=== PATIENT | male | born 1940 | race Caucasian/White ===

== ENCOUNTER → 2021-04-02 | Outpatient (CLI) | payer MEDICARE ==
[~2021-04-02] MED LIST: AEC81 PO; AMLO-257 PO; AMLO-258 PO; CEPH500B PO; LABE200T5 PO; PHEN-847 PO; ROSU20TA23 PO; ROSU20TA31 PO; TRAM50TA4 PO
== END | disposition home or self-care (01) ==
LOC: RAH 13:27
PROVIDERS: ATTEND Urology
DX: N20.0 Calculus of kidney (principal); N26.1 Atrophy of kidney (terminal); R55 Syncope and collapse
CPT/HCPCS: 74176

== ENCOUNTER → 2022-10-01 | Outpatient (CLI) | payer MEDICARE ==
[~2022-10-01] MED LIST changes: -LABE200T5 PO; +LABE200T7 PO
== END | disposition home or self-care (01) ==
LOC: SHCH 09:42
PROVIDERS: ATTEND Internal Medicine Cardiovascular Disease
DX: G45.1 Carotid artery syndrome (hemispheric) (principal)
CPT/HCPCS: 93880

== ENCOUNTER → 2023-10-31 | Outpatient (CLI) | payer MEDICARE ==
[~2023-10-31] MED LIST changes: -ROSU20TA31 PO; +ROSU20TA73 PO
[2023-10-31 12:33] LABS: CREATININE 1.2 mg/dL (0.5-1.5); POTASSIUM 5.1 mmol/L (3.5-5.1)
== END | disposition home or self-care (01) ==
LOC: LAB 10-30 10:10
PROVIDERS: ATTEND Internal Medicine Cardiovascular Disease
DX: I10 Essential (primary) hypertension (principal); E78.5 Hyperlipidemia, unspecified
CPT/HCPCS: 36415; 80048; 80061

== ENCOUNTER → 2023-12-18 | Outpatient (CLI) | payer MEDICARE | END | disposition home or self-care (01) | LOC: SHCH 14:17 | PROVIDERS: ATTEND Internal Medicine Cardiovascular Disease | DX: G45.1 Carotid artery syndrome (hemispheric) (principal) | CPT/HCPCS: 93880 ==

== ENCOUNTER → 2024-11-06 | Outpatient (CLI) | payer MEDICARE ==
[~2024-11-06] MED LIST changes: -ROSU20TA73 PO; +ROSU20TA98 PO
== END | disposition home or self-care (01) ==
LOC: SHCH 11:24
PROVIDERS: ATTEND Internal Medicine Cardiovascular Disease
DX: Z45.02 Encounter for adjustment and management of automatic implantable cardiac defibrillator (principal)
CPT/HCPCS: 93306

== ENCOUNTER 2024-12-15 05:50 | Day surgery (SDC) | payer MEDICARE ==
[2024-12-13 09:40] LABS: BASOPHILS # (AUTO) 0.07 K/uL (0.00-0.20); BASOPHILS % (AUTO) 1.4 % (0.0-5.0); LYMPHOCYTES # (AUTO) 1.2 K/uL (1.0-4.8); LYMPHOCYTES % (AUTO) 24.3 % (21.0-51.0); MEAN CORPUSCULAR HEMOGLOBIN 31.3 pg (27.0-33.0); MEAN CORPUSCULAR HGB CONC 32.4 g/dL (32.0-36.0); MEAN CORPUSCULAR VOLUME 96.4 fL (79-99); MONOCYTES # (AUTO) 0.4 K/uL (0.1-1.0); MONOCYTES % (AUTO) 8.3 % (3.0-13.0); NEUTROPHILS # (AUTO) 3.4 K/uL (1.8-7.7); PLATELET COUNT (AUTO) 124 K/uL (130-400); RED BLOOD CELL COUNT(AUTO) 4.67 MIL/uL (4.50-6.20); RED CELL DISTRIBUTION WIDTH 14.1 % (11.0-15.5); WHITE BLOOD COUNT (AUTO) 5.1 K/uL (4.8-10.8)
[2024-12-13 09:44] VITALS: BP 145/76; PULSE 71; RESP 15; TEMP 97.5
[2024-12-13 09:47] LABS: CREATININE 1.3 mg/dL (0.5-1.3); POTASSIUM 5.3 mmol/L (3.5-5.1)
[2024-12-13 09:54] LABS: INR 1.07 (0.85-1.15); PROTHROMBIN TIME 11.3 SEC (9.6-11.6)
[2024-12-13 09:55] LABS: PARTIAL THROMBOPLASTIN TIME 29.6 SEC (26.3-35.5)
--- NOTE | 2024-12-13 10:06 | EKG ---
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
[~2024-12-15] VITALS: Ht 180.3 cm; Wt 93.4 kg
[~2024-12-15 05:50] MED LIST changes: -AEC81 PO; -CEPH500B PO
[2024-12-15 06:15] VITALS: BP 139/96; PULSE 77; RESP 18; TEMP 97.2
[2024-12-15] MEDS ORDERED: TAMS-1 PO (07:00)
[2024-12-15] MEDS ORDERED: METO-391 PO (07:00)
[2024-12-15] MEDS ORDERED: POTA15TA11 PO (07:00)
[2024-12-15] MEDS ORDERED: LIDOCAINE HCL 1% MDV 50ML VIAL ONE (07:24)
[2024-12-15] MEDS ORDERED: BUPIvacaine/PF 0.25% 30ML VIAL IJ ONE (07:24)
[2024-12-15] MEDS ORDERED: ceFAZolin SODIUM 1 GM VIAL ONE (07:24)
[2024-12-15] MEDS ORDERED: FENTanyl CITRate PF 50 MCG/1 ML 2ML VIAL ONE (07:39)
[2024-12-15] MEDS ORDERED: MIDAZOLAM HCL 1 MG/ML 2ML VIAL ONE ×2 (07:40→07:48)
[2024-12-15] MEDS ORDERED: DiphenhydrAMINE HCL 50 MG/ML VIAL ONE (07:57)
[2024-12-15] MEDS ORDERED: SODIUM BICARB 50MEQ 50ML VIAL 50 ML ONE (08:01)
[2024-12-15] MEDS ORDERED: BACITRACIN 1 EACH PACKET TP ONE (08:20)
[2024-12-15] MEDS ORDERED: TRAM50TA4 PO (08:38)
[2024-12-15] MEDS ORDERED: acetaMINOPHEN WITH coDEINE 1 TAB TAB PO PRN ×2 (09:00)
[2024-12-15] MEDS ORDERED: acetaMINOPHEN 500 MG TABLET PO PRN (09:00)
[2024-12-15 09:10] VITALS: BP 151/63; PULSE 60; RESP 14; TEMP 97.4
--- NOTE | 2024-12-15 09:10 | NUR ---
PT ARRIVED TO DAY #14 LEFT SIDE CHEST NOTED SCANT AMOUNT OF BLOOD TO DRESSING. SKIN AROUND PACEMAKER SITE ASYMPTOMATIC. VSS NAD.
[2024-12-15 09:25] VITALS: BP 134/88; PULSE 60; RESP 14
[2024-12-15 09:40] VITALS: BP 138/82; PULSE 60; RESP 15
[2024-12-15 09:55] VITALS: BP 142/67; PULSE 60; RESP 13
[2024-12-15 10:10] VITALS: BP 149/73; PULSE 60; RESP 14
--- NOTE | 2024-12-15 10:10 | NUR ---
BOTH PT AND GIVEN VERBAL AND WRITTEN DISCHARGE INSTRUCTIONS. INSTRUCTIONS GIVEN FOR DRESSING CHANGES WELL. LEFT CHEST ASYMPTOMATIC DRESSING NOTED WITH SCANT AMOUNT OF BLOOD WHEN PT ARRIVED TO DAY #14.
== END 2024-12-15 10:25 | disposition home or self-care (01) ==
LOC: DAH 05:50
PROVIDERS: ATTEND Internal Medicine Cardiovascular Disease
DX: Z45.010 Encounter for checking and testing of cardiac pacemaker pulse generator [battery] (principal); I44.2 Atrioventricular block, complete; I25.10 Atherosclerotic heart disease of native coronary artery without angina pectoris; I12.9 Hypertensive chronic kidney disease with stage 1 through stage 4 chronic kidney disease, or unspecified chronic kidney disease; N18.31 Chronic kidney disease, stage 3a; E78.5 Hyperlipidemia, unspecified; I77.9 Disorder of arteries and arterioles, unspecified; F10.90 Alcohol use, unspecified, uncomplicated; Z79.899 Other long term (current) drug therapy; Z79.82 Long term (current) use of aspirin; Z98.890 Other specified postprocedural states; Z95.5 Presence of coronary angioplasty implant and graft; Z79.01 Long term (current) use of anticoagulants
CPT/HCPCS: 80048; 85025; 85610; 85730; 36415; 93005; 33228; A4223 ×3; C1785; J3010; J0690; J0665; J3490 ×2; J2250 ×2; A4215; A6251; A4222; A4221; A4663; A4216; A6258; A4606; 99156; 99157; J1200

== ENCOUNTER → 2025-04-07 | Outpatient (CLI) | payer MEDICARE ==
[~2025-04-07] MED LIST changes: -AMLO-257 PO; -AMLO-258 PO; -LABE200T7 PO; +METO-391 PO; -PHEN-847 PO; +POTA15TA11 PO; -ROSU20TA23 PO; +TAMS-55 PO
--- NOTE | 2025-04-07 14:42 | HMCIMG ---
EXAM: CR Cervical spine, 4 View. CLINICAL HISTORY: CERVIACALGIA COMPARISON: None provided. FINDINGS: Moderate to marked facet arthrosis bilaterally. C7 vertebral body and C7-T1 alignment is not adequately seen on the lateral view due to underpenetration. Large anterior endplate marginal spurring/anterior longitudinal ligament calcification C4 and C6. No prevertebral soft tissue swelling. Surgical clips right anterior lateral neck mild loss of the C4-C5 disc space. Marked loss of the C6-C7 disc space. The included apical lungs are clear. There are 2 cardiac leads partially visible. The C1-C2 relationship is intact. The tip of the dens is not well seen IMPRESSION: 1. No acute osseous injury. 2. 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 3. Limited evaluation of C7-T1 due to technical factors. If there is a history of trauma recommend CT C-spine for further evaluation /[place]
== END | disposition home or self-care (01) ==
LOC: RAH 13:39
PROVIDERS: ATTEND Nurse Practitioner Adult Health
DX: M47.812 Spondylosis without myelopathy or radiculopathy, cervical region (principal); M54.2 Cervicalgia; G89.11 Acute pain due to trauma
CPT/HCPCS: 72040

== ENCOUNTER → 2025-05-26 | Outpatient (CLI) | payer MEDICARE ==
[~2025-05-26] MED LIST changes: +REGADENOSON 0.4 MG/5 ML PF SYG IVP ONE
[2025-05-26] MEDS: REGADENOSON 0.4 MG/5 ML PF SYG IVP ONE (14:38)
--- NOTE | 2025-05-27 08:45 | HMCSR ---
APPROVED REPORT Height: 5 ft 11in Weight: 203 lbs TEST INDICATIONS CAD The imaging protocol used to acquire images was Rest Tc-99m/stress Tc-99m 1 day Consent: The procedure was explained and understood by the patient. Informerd consent was witnessed Arthur Hayes RN First, low dose rest was performed then high dose stress. RESTING DATA: The resting ekg shows: NSR Rest SPECT myocardial perfusion imaging was performed in supine position minutes following the intra venous injection of 11 mCi of Tc-99 Sestamibi. Time of rest injection: 11:13: Date: 05/26/2025 PHARMACOLOGIC STRESS: Pharmacologic stress test was performed by injecting regadenoson 0.4 mg IV push followed by the intra venous injection of 31 mCi of Tc-99 Sestamibi. Time of stress injection: 12:52: Date: 05/26/2025 Heart Rate at time of stress injection: 83 bpm. Gated Stress SPECT was performed 60 minutes after stress injection. The images were gated to evaluate regional wall motion and calculate left ventricular ejection fracti on. STRESS DETAILS Reason for Termination: Infusion complete Stress Symptoms: Dyspnea Max HR Achieved: 91 bpm % of APMHR Achieved: 79 Max Blood Pressure: 145/57 mmHg Stress ECG: NSR Conclusion No ischemia No infarct LV ejection fraction greater than 70% Normal LV size at rest and stress No increased lung uptake Normal LV wall motion
== END | disposition home or self-care (01) ==
LOC: RAH 10:44
PROVIDERS: ATTEND Internal Medicine Cardiovascular Disease
DX: I25.10 Atherosclerotic heart disease of native coronary artery without angina pectoris (principal)
CPT/HCPCS: 78452; 93017; J2785; A9500 ×2